=== PATIENT | female | born 1970 | race Two or more races ===

== ENCOUNTER 2023-12-31 13:36 | Emergency (ER) | payer OTHER ==
[2023-12-31 13:54] VITALS: BP 125/66; PULSE 70; RESP 18; TEMP 98.2; BMI 29.7
[2023-12-31] MEDS ORDERED: ACETAMINOPHEN 500 MG TABLET (FP) ONE (15:58)
[2023-12-31] MEDS: ACETAMINOPHEN 500 MG TABLET (FP) PO ONE (15:59)
== END 2023-12-31 16:48 | disposition home or self-care (01) ==
LOC: JERFT 13:36 → JER 13:36 → JERFT 16:48
DX: M25.511 Pain in right shoulder (principal); M25.551 Pain in right hip; M79.651 Pain in right thigh; M79.10 Myalgia, unspecified site; V78.4XXA Person boarding or alighting from bus injured in noncollision transport accident, initial encounter
CPT/HCPCS: 73030-TC-RT-FY; 73502-TC-RT-FY; 73552-TC-RT-FY; 99284-25